=== PATIENT | male | born 1955 | race Caucasian/White ===

== ENCOUNTER 2017-06-12 07:38 | Inpatient (IN) | payer BC, SELFPAY ==
[2017-06-12 07:39] VITALS: BP 145/71; PULSE 115; RESP 16; TEMP 36.9; O2SAT 98; BMI 25.5
--- NOTE | 2017-06-12 07:48 | RAD_ITS ---
STUDY: X-RAY - ACUTE ABDOMINAL SERIES REASON FOR EXAM: Male, 61 years old. Abdominal pain with nausea and vomiting. TECHNIQUE: Single view of the chest. Supine, and erect view(s) of the abdomen were obtained. COMPARISON: Comparison is made with prior examination dated April 18, 2016. FINDINGS: Stable elevation of the right hemidiaphragm. Mild increased markings at the lung bases worse on the right side suggestive of developing atelectasis and/or scarring. Normal size heart. Normal mediastinum and [place]. Normal visualized pulmonary arteries. There is atherosclerotic tortuosity of the aortic arch and descending thoracic aorta. There is a moderate amount of colonic fecal material. There are multiple calcified phleboliths. Normal visualized osseous structures. There are degenerative osteoarthritic changes of the bilateral hips. RAD/Acute Abdomen Inc Chest IMPRESSION: Moderate amount of fecal material is seen in the colon. Electronically Signed: Nikolas Rizo MD at 9:25 EST Tel [phone], Service support ,
--- NOTE | 2017-06-12 07:58 | ED.VISSUMM ---
- ER Visit Summary Date of Service: 06/12/17 Chief Complaint: Abdominal pain with nausea and vomiting History of Present Illness: The patient is a 61 M who presents with abdominal pain with nausea vomiting started yesterday. He has not had a bowel movement in 24-48 hours. He does have history of Crohn's and normally has 1-2 bowel movements a day. He states he has not had any flatus for 12-24 hours. He reports decreased urine output. He also complains of thirst and dry mouth. He does complain of orthostatic symptoms with standing. The pain is periumbilical without radiation. There is no hematemesis, melena hematochezia. He had a resection of his bowel [address] Brothers. He denies fever, chills night sweats. He denies any ocular, visual auditory symptoms. He denies any respiratory or cardiac symptoms. He denies any skin lesions. There is no history of trauma. He denies any neurologic, endocrine or hematologic symptoms. Please read written note for complete detail Physical Examination: Vital signs are remarkable for blood pressure 145/71 heart rate 115. He appears uncomfortable. HEENT exam is remarkable dry mucosa and tongue otherwise normal. Heart is rapid and regular without murmur, gallop or rub. Lungs are clear to auscultation with good movement of air bilaterally. Abdomen is slightly distended and tympanitic with decreased bowel sounds and tenderness without guarding or rebound tenderness. There is no evidence of umbilical or inguinal hernia. There is a well-healed superior umbilical scar noted. He is alert and oriented with a nonfocal neurologic exam. Test Results: Three-view abdominal x-ray is nondiagnostic with no ossific gas pattern. White count elevated at 19.8 thousand with 86 segs no bands. BMP is remarkable glucose 133 with a BUN and creatinine at [address] of the abdomen reveals air-fluid pill small bowel consistent with an early partial small bowel obstruction. Emergency Department Course and Treatment: IV was established and he will receive 1 L of normal saline wide open. A CBC and BMP were ordered as well as abdominal series. Concern patient has a partial small bowel obstruction. Since patient's abdominal film was nondiagnostic and concern he may have a partial obstruction and a CT of the abdomen pelvis with p.o. contrast was ordered. Treatment Plan: Case was discussed with Dr. Paulina Brothers. An NG was ordered to low intermittent wall suction and she will admit patient. Disposition: Admission MedSur Impression: 1. Partial small bowel obstruction 2. History of Crohn's disease 3. History of hypertension 4. History of benign prostatic hypertrophy This note was generated with [employer] dictation software. It may contain incorrect words, spelling, and punctuation that were not noted in review of the chart prior to signing ED Disposition - Plan for ED Patient: Chief Complaint: Constipation Referrals: Regan Geller MD [Primary Care Provider] -
[2017-06-12] MEDS: Ondansetron 4 MG/2 ML Vial IV ×2 (08:07→09:24)
[2017-06-12] MEDS: 0.9% Normal Saline 1,000 ML 1000 ML IV (08:07)
[2017-06-12 08:12] LABS: Basophil# 0.02 X10^3/uL; Basophil% 0.1 % (0-1); Eosinophil# 0.07 X10^3/uL; Eosinophils% 0.4 % (0-5); Hematocrit 47.3 % (40-54); Hemoglobin 16.7 g/dl (13.0-16.5); Lymphocyte % 8.6 % (19-41); Mean Corp Hgb Conc 35.3 g/gl (32-36); Mean Corpuscular Volume 87.9 fL (80-94); Mean Platelet Vol. 9.6 fl (6.2-12.0); Monocyte# 0.97 X10^3/uL; Monocyte% 4.9 % (0-10); Neutrophil % 85.7 % (47-70); Platelet Count 289 K/mm3 (150-450); RBC Distribution Width CV 13.2 % (11.6-14.6); Red Blood Count 5.38 M/mm3 (4.6-6.2); White Blood Count 19.8 K/mm3 (4.4-11.0)
[2017-06-12 08:13] LABS: POSITIVE COUNT NO; POSITIVE DIFFERENTIAL NO; POSITIVE MORPHOLOGY NO
[2017-06-12 08:23] LABS: Anion Gap 9 (5-15); BUN 26 mg/dL (7-18); BUN/Creat Ratio 24.3 RATIO (10-20); Calcium,Total 9.6 mg/dL (8.5-10.1); Chloride 101 mmol/L (98-107); Creatinine, Serum 1.07 mg/dL (0.70-1.30); EST Glomerular Filtration Rate 74 mL/min (>60); Est Glom Filt Rate - Afr Amer 90 mL/min (>60); Estimated Creatinine Clearance 73.91 ml/min; Glucose 133 mg/dL (74-106); Potassium 3.8 mmol/L (3.5-5.1); Sodium Level 138 mmol/L (136-145)
--- NOTE | 2017-06-12 08:57 | CT_ITS ---
STUDY: CT ABDOMEN AND PELVIS WITHOUT CONTRAST REASON FOR EXAM: Male, 61 years old. Nausea and vomiting. Abdominal distention. 2 day history of constipation. History of Crohn's. RADIATION DOSAGE (If Supplied By Facility): CTDIvol = ( 9.72 ) mGy, DLP = ( 560.97 ) mGycm TECHNIQUE: Transaxial images were obtained from the dome of the diaphragm to the symphysis pubis without oral contrast, and without intravenous contrast. Sagittal and coronal images were reconstructed. Individualized dose optimization techniques were used for this CT. COMPARISON: Comparison is made with prior study done April 18, 2016. FINDINGS: Stable mild degree of increased markings at the lung bases likely worse on the right side suggestive of atelectatic or fibrotic changes. Calcified granuloma in the left lower lobe. Coronary artery calcification. Stable 3.2 cm x 2.2 cm cyst in the left lobe of the liver. The patient is status post cholecystectomy. Normal spleen. Normal pancreas. Normal bilateral adrenal glands. Normal right kidney. Normal left kidney. There is a small hiatal hernia. Surgical sutures are seen in the distal ileum. Mildly dilated fluid-filled ileal loops. No inflammatory changes are seen at this time. There is evidence of multiple small mesenteric lymph nodes in the right lower quadrant. Normal colon. There are surgical clips in the region of the appendix consistent with a prior appendectomy. Normal abdominal aorta. Normal inferior vena cava. Normal retroperitoneum. Distended urinary bladder. Stable appearance of the 5.8 cm x 4 cm left-sided bladder diverticulum. Small amount of free fluid is seen in the pelvis. Prostatic enlargement with indentation of the bladder base. Central prostatic calcification. There is a small umbilical hernia containing fat. Normal osseous structures. CT/Abdomen/Pel W ORAL Cont Only IMPRESSION: Minimally fluid distended ileal loops. There is no evidence of inflammatory changes at this time. Distended urinary bladder with a left-sided bladder diverticulum. Otherwise stable examination. Electronically Signed: Nikolas Rizo MD at 11:27 EST Tel [phone], Service support ,
[2017-06-12 09:30] VITALS: BP 138/89
--- NOTE | 2017-06-12 12:21 | NURSING ---
DR PEYTON SCHULTE
--- NOTE | 2017-06-12 12:27 | NURSING ---
DR TODD PAGED. SHE WILL ADMIT PATIENT
[2017-06-12] MEDS: Oxymetazoline 0.05% 1 SPRAY SPRAY.BTL 2 SPRAY NASAL (13:20)
[2017-06-12] MEDS: Lidocaine 4% 5 ML Ampul 2 ML INHALATION (13:21)
[2017-06-12 13:35] VITALS: BP 130/84; PULSE 87; RESP 16; TEMP 37.1; O2SAT 99
--- NOTE | 2017-06-12 13:40 | RAD_ITS ---
STUDY: X-RAY - ABDOMEN/PELVIS REASON FOR EXAM: Male, 61 years old. Nasogastric tube placement. TECHNIQUE: Single AP view of the abdomen / pelvis. COMPARISON: Comparison is made with prior examination done at 1:41 PM. FINDINGS: The tip is now at 4.8 cm distal to the gastroesophageal junction within the body of the stomach. RAD/Abdomen Single View (Portable) IMPRESSION: The tip of the nasogastric tube is in the body of the stomach at 4.8 cm distal to the gastroesophageal junction. Electronically Signed: Nikolas Rizo MD at 14:26 EST Tel [phone], Service support ,
--- NOTE | 2017-06-12 13:41 | RAD_ITS ---
STUDY: X-RAY - ABDOMEN/PELVIS REASON FOR EXAM: Male, 61 years old. Nasogastric tube placement. TECHNIQUE: Single AP view of the abdomen / pelvis. COMPARISON: Comparison is made with prior examination done earlier today. FINDINGS: A nasogastric tube is seen with the tip at the gastroesophageal junction. Elevation of the right hemidiaphragm with stable increased linear markings at the lung bases. RAD/Abdomen Single View (Portable) IMPRESSION: The tip of the nasogastric tube is at the gastroesophageal junction. Electronically Signed: Nikolas Rizo MD at 14:22 EST Tel [phone], Service support ,
--- NOTE | 2017-06-12 13:48 | PCM.HP.BLA ---
History and Physical Date of Admission: 06/12/17 Chief Complaint: abdominal pain History of Present Illness: 61 y/o WM presents with complaint of abdominal pain since yesterday. Has had multiple admission in past for partial SBO - resolved with IV hydration, NG tube decompression and bowel rest. Pain started yesterday, had bowel movement yesterday, had passed small amounts of flatus yesterday. Awoke this morning from pain at 0300 and had multiple episodes of emesis. s/p xlap/DAYANA/SB resection 10/27/11 for Crohn's terminal ileum, had postoperative intraabdominal abscess drained percutaneously. last admission for partial SBO Apr 2016 Denies blood in stools. Following Dr. Mcmahan for Crohn's disease on humira. Past Medical History: Crohn's disease on Humira hypertension hyperlipidemia GERD BPH Past Surgical History: Appendectomy Lipoma removal Small bowel resection/DAYANA 10/27/11 for Crohn's terminal ileum Cholecystectomy Medications: humira every other week aspirin cholecalciferol doxazosin lansoprazole niacin omeprazole Allergies: Has no known drug allergies Social history: , lives with spouse TOB - none Review of Systems: General - denies fevers Cardiovascular denies chest pain, denies history of heart attack Pulmonary denies shortness of breath, denies coughing up blood Gastrointestinal as per HPI, denies blood in stools Neurological denies numbness/weakness of extremities, denies seizures Genitourinary denies burning with urination, denies blood in urine Hematological denies spontaneous\prolonged bleeding Skin denies open non healing wounds Musculoskeletal denies chronic joint pain Endocrine denies diabetes Psychological denies suicidal ideation, denies hallucinations Physical examination: Vital signs Temp 98.5F HR 115 BP 145/71 RR 95 General WD/WN WM in no apparent distress, alert and oriented, not septic appearing HEENT Normocephalic. EOM intact with sclera clear and no icterus noted. Wearing glasses. Neck is supple with no jugular venous distention noted. Trachea is midline. Lungs clear to auscultation. normal breath sounds. No rales/rhonchi/wheezing noted. No labored breathing noted, such as retractions. . Heart normal S1 and S2 auscultated. No rubs/clicks/murmurs noted. . Abdomen soft but with generalized tenderness. no bowel sounds noted, no peritoneal signs noted, distended Extremities no calf tenderness noted. No pitting edema noted. Genitourinary/Rectal deferred Skin normal skin integrity. Neurological non focal Psychological normal affect, patient is calm and appropriate Impression: partial SBO Crohn's disease Discussion/Plan: I have discussed the above with the patient. Will proceed with conservative therapy with IV hydration, NG tube decompression and bowel rest. Given elevated WBC - will empirically begin with IV antibiotics - levaquin and flagyl. I do not believe that there are surgical indications at present. Will consult internal medicine for management of medical issues - hypertension, etc. I have answered all questions to the patients satisfaction and the patient has no further questions.
--- NOTE | 2017-06-12 13:51 | HP.PCM_ITS ---
History and Physical Date of Admission: 06/12/17 Chief Complaint: abdominal pain History of Present Illness: 61 y/o WM presents with complaint of abdominal pain since yesterday. Has had multiple admission in past for partial SBO - resolved with IV hydration , NG tube decompression and bowel rest. Pain started yesterday, had bowel movement yesterday, had passed small amounts of flatus yesterday. Awoke this morning from pain at 0300 and had multiple episodes of emesis. s/p xlap/DAYANA/SB resection 10/27/11 for Crohn's terminal ileum, had postoperative intraabdominal abscess drained percutaneously. last admission for partial SBO Apr 2016 Denies blood in stools. Following Dr. Mcmahan for Crohn's disease on humira. Past Medical History: Crohn's disease on Humira hypertension hyperlipidemia GERD BPH Past Surgical History: Appendectomy Lipoma removal Small bowel resection/DAYANA 10/27/11 for Crohn's terminal ileum Cholecystectomy Medications: humira every other week aspirin cholecalciferol doxazosin lansoprazole niacin omeprazole Allergies: Has no known drug allergies Social history: , lives with spouse TOB - none Review of Systems: General - denies fevers Cardiovascular denies chest pain, denies history of heart attack Pulmonary denies shortness of breath, denies coughing up blood Gastrointestinal as per HPI, denies blood in stools Neurological denies numbness/weakness of extremities, denies seizures Genitourinary denies burning with urination, denies blood in urine Hematological denies spontaneous\prolonged bleeding Skin denies open non healing wounds Musculoskeletal denies chronic joint pain Endocrine denies diabetes Psychological denies suicidal ideation, denies hallucinations Physical examination: Vital signs Temp 98.5F HR 115 BP 145/71 RR 95 General WD/WN WM in no apparent distress, alert and oriented, not septic appearing HEENT Normocephalic. EOM intact with sclera clear and no icterus noted. Wearing glasses. Neck is supple with no jugular venous distention noted. Trachea is midline. Lungs clear to auscultation. normal breath sounds. No rales/rhonchi/ wheezing noted. No labored breathing noted, such as retractions. . Heart normal S1 and S2 auscultated. No rubs/clicks/murmurs noted. . Abdomen soft but with generalized tenderness. no bowel sounds noted, no peritoneal signs noted, distended Extremities no calf tenderness noted. No pitting edema noted. Genitourinary/Rectal deferred Skin normal skin integrity. Neurological non focal Psychological normal affect, patient is calm and appropriate Impression: partial SBO Crohn's disease Discussion/Plan: I have discussed the above with the patient. Will proceed with conservative therapy with IV hydration, NG tube decompression and bowel rest. Given elevated WBC - will empirically begin with IV antibiotics - levaquin and flagyl. I do not believe that there are surgical indications at present. Will consult internal medicine for management of medical issues - hypertension, etc. I have answered all questions to the patient?s satisfaction and the patient has no further questions.
[2017-06-12 14:12] VITALS: BP 144/99; PULSE 76; RESP 18; TEMP 37.2; O2SAT 99
[2017-06-12 14:13] VITALS: BMI 25.9
[2017-06-12 14:14] VITALS: BMI 25.9
[2017-06-12] MEDS: Lactated Ringers 1,000 ML 150 ML IV ×2 (14:51→22:22)
[2017-06-12] MEDS: 0.9% NaCl Peripheral Flush Adult/Peds IV ×2 (16:13→17:10)
[2017-06-12 17:06] VITALS: BP 129/78; PULSE 71; RESP 18; TEMP 37.5; O2SAT 94
[2017-06-12] MEDS: Enalaprilat 1.25 MG/ML Vial IV (17:10)
--- NOTE | 2017-06-12 17:45 | PCM.PROGNOTE ---
Subjective: Patient is a 61-year-old male admitted for abdominal pain with history of recurrent partial small bowel obstruction. He has a past medical history of Crohn's disease, hypertension, hyperlipidemia, GERD, BPH. Hospitalist service consulted for management of hypertension. Blood pressure is currently stable. He states he was placed on doxazosin by PCP for BPH which he was also told would help with high blood pressure. Patient was seen and examined. Denies abdominal pain currently although he states he recently received IV morphine. NG in place with dark brown drainage. Patient had a normal bowel movement yesterday. He denies fever, chills. Denies nausea. Denies other complaints. - Physical Exam General: Alert, Oriented x3, Cooperative, No apparent distress HEENT: Atraumatic, PERRLA, EOMI, Normocephalic Neck: Supple, No JVD, Negative Carotid Bruits Lungs: Clear to auscultation, Normal air movement Cardiovascular: Regular rate, Regular Rhythm, Normal S1, Normal S2, No murmurs Abdomen: Bowel Sounds Present, Soft, Non Tender, Non-Distended, - - NG tube in place Extremities: No clubbing, No cyanosis, No edema, Capillary Refill Less than 3 Seconds Skin: No rashes, No breakdown Musculoskeletal: No Tenderness to Palpation of Joints or Extremities Neurological: Cranial nerves II-XII grossly intact, Neuro grossly intact Psych/Mental Status: Normal Affect, Appropriate Vital Signs Temp Pulse Resp BP Pulse Ox 99.5 F H 71 18 129/78 H 94 06/12/17 17:06 06/12/17 17:06 06/12/17 17:06 06/12/17 17:06 06/12/17 17:06 Oxygen Delivery Method Room Air Weight: 81.873 kg Body Mass Index (BMI) 25.9 Assessment/Plan 1. Recurrent partial small bowel obstruction- management per surgery, Dr. Brothers. Recent admission for partial small bowel obstruction April 2016. Patient has history of small bowel resection/DAYANA secondary to Crohn's. Continue IV hydration. NG tube in place. N.p.o. Zofran for nausea. IV Levaquin and Flagyl were initiated given leukocytosis. Morphine as needed for pain. 2. Hypertension-stable. IV Vasotec 1.25 mg every 6 as needed for systolic greater than 160. 3. Crohn's disease-on Humira regimen. Follows with Dr. Mcmahan. 4. Hyperlipidemia-on niacin supplementation. 5. GERD-continue Prevacid regimen when able to tolerate oral intake. 6. BPH-continue Flomax regimen when able to tolerate oral intake. DVT prophylaxis-SCDs. This patient was seen by ROOSEVELT Luque under the supervision of Dr. Graves.
[2017-06-12 19:55] VITALS: BP 129/80; PULSE 67; RESP 18; TEMP 37; O2SAT 97
[2017-06-12] MEDS: Doxazosin 4 MG Tablet 8 MG NG (22:23)
[2017-06-13 01:55] VITALS: BP 137/81; PULSE 62; RESP 16; TEMP 36.8; O2SAT 95
[2017-06-13] MEDS: Lactated Ringers 1,000 ML 150 ML IV (04:53)
--- NOTE | 2017-06-13 05:55 | RAD_ITS ---
STUDY: X-RAY - ABDOMEN/PELVIS REASON FOR EXAM: Male, 61 years old. Abdominal distention. TECHNIQUE: AP supine and upright views of the abdomen and pelvis. COMPARISON: Comparison is made with prior study dated June 12, 2017. FINDINGS: Stable elevation of the right hemidiaphragm with mild increased linear markings at the lung bases suggestive of atelectasis. The tip of the nasogastric tube is in the body of the stomach. Oral contrast from prior CT scan is seen throughout the colon. There is no evidence of a bowel obstruction at this time. There is no demonstrated free abdominal air. The visualized liver, spleen and kidneys are grossly normal in size and morphology. Normal soft tissue structures. Normal visualized osseous structures. RAD/Abd Inc Decub and/or Erect IMPRESSION: Contrast is seen within the colon. There is no evidence of bowel obstruction. Electronically Signed: Nikolas Rizo MD at 10:17 EST Tel [phone], Service support ,
[2017-06-13] MEDS: 0.9% NaCl Peripheral Flush Adult/Peds IV ×2 (06:26→08:49)
--- NOTE | 2017-06-13 06:38 | NURSING ---
Pt off floor with CRUSHER SUPERVISOR for testing.
[2017-06-13 08:00] VITALS: RESP 18
[2017-06-13] MEDS: Ondansetron 4 MG/2 ML Vial IV (08:49)
[2017-06-13 08:59] VITALS: BP 132/78; PULSE 67; RESP 18; TEMP 36.6; O2SAT 98
--- NOTE | 2017-06-13 09:31 | PCM.PN.HOSP ---
Subjective: CC: PSBO Patient reports improved symptoms with no abdominal pain, nausea or vomiting , he is passing gas and NG tube was removed. Vitals/I&O's: Vital Signs Temp Pulse Resp BP Pulse Ox 97.8 F 67 18 132/78 H 98 06/13/17 08:59 06/13/17 08:59 06/13/17 08:59 06/13/17 08:59 06/13/17 08:59 Oxygen Delivery Method Room Air Weight: 81.873 kg Body Mass Index (BMI) 25.9 Intake and Output for Last 24 Hours 06/11/17 06/12/17 06/13/17 23:59 23:59 23:59 Intake Total 510 / 510 2225 / 2225 Output Total 300 / 300 1075 / 1075 Balance 210 / 210 1150 / 1150 General: Alert, Oriented x3 HEENT: Atraumatic Oral: Moist Mucosa Neck: Supple Lungs: Clear to auscultation, No wheeze, No rales, Rales Cardiovascular: Regular rate, Normal S1, Normal S2 Abdomen: Bowel Sounds Present, Soft Extremities: No clubbing Neurological: Cranial nerves II-XII grossly intact, Motor Exam 5/5 strength throughout Psych/Mental Status: Normal Affect Current Medications Doxazosin Mesylate (Cardura) 8 mg NG QHS [facility] Last Admin: 06/12/17 22:23 Dose: 8 mg Lactated Ringer's () 1,000 mls @ 150 mls/hr IV .[id number] [facility] Last Admin: 06/13/17 04:53 Dose: 150 mls/hr Levofloxacin (Levaquin) 500 mg in 100 mls @ 100 mls/hr IV Q24 [facility] Last Admin: 06/12/17 17:08 Dose: 100 mls/hr Metronidazole (Flagyl) 500 mg in 100 mls @ 100 mls/hr IV Q8 [facility] Last Admin: 06/13/17 05:58 Dose: 100 mls/hr Morphine Sulfate (Morphine) 4 mg IV Q1H PRN PRN PRN Reason: SEVERE PAIN (6-10/10) Last Admin: 06/13/17 05:58 Dose: 4 mg Ondansetron HCl (Zofran) 4 mg IV Q6H PRN PRN Reason: NAUSEA Last Admin: 06/13/17 08:49 Dose: 4 mg Sodium Chloride () 5 - 30 ml IV UD PRN PRN Reason: SALINE FLUSH Last Admin: 06/13/17 08:49 Dose: 10 ml Assessment/Plan 1. Recurrent partial small bowel obstruction; management per primary service. 2. Hypertension-stable, n.p.o. is discontinued we will be placed on oral antihypertensive agents. 3. Crohn's disease-on Humira regimen. He will Follows u[ with Dr. Mcmahan as an opt. 4. Hyperlipidemia-on niacin supplementation. 5. GERD; on Prevacid . 6. BPH; he is on Flomax . Code Visit Inpatient E&M: 31424 Subs Hosp L2
--- NOTE | 2017-06-13 11:54 | PCM.PN.SRG ---
Subjective: patient passed flatus a short while ago KUB reveals that contrast in colon Patient states that abdomen is sore - Physical Exam General: Alert, Oriented x3 Oral: Moist Mucosa Neck: Supple Lungs: Normal air movement Abdomen: Bowel Sounds Present, Soft Vital Signs Temp Pulse Resp BP Pulse Ox 97.8 F 67 18 132/78 H 98 06/13/17 08:59 06/13/17 08:59 06/13/17 08:59 06/13/17 08:59 06/13/17 08:59 Oxygen Delivery Method Room Air Weight: 81.873 kg Body Mass Index (BMI) 25.9 Intake and Output for Last 24 Hours 06/11/17 06/12/17 06/13/17 23:59 23:59 23:59 Intake Total 510 / 510 2225 / 2225 Output Total 300 / 300 1075 / 1075 Balance 210 / 210 1150 / 1150 Assessment/Plan Impression: Partial SBO - resolved Crohn's disease PLAN: will order full liquid diet, if tolerates, may discharge to home on this today
--- NOTE | 2017-06-13 11:56 | PCM.DC.GS ---
Discharge Diet: - - liquid type diet for 1-2 days until patient feels normal, avoid carbonated beverages for a few days Discharge Activity: Return to Normal Activity Allergies/Adverse Reactions: Allergies No Known Allergies Allergy (Verified 06/12/17 07:40) Medications to take at Discharge Cholecalciferol (VIT D3) [Vitamin D3] 5,000 unit PO DAILY 04/18/16 Lansoprazole [Prevacid] 15 mg PO DAILY 04/18/16 Niacin SA [Niaspan] 1,000 mg PO DAILY 04/18/16 Adalimumab [Humira] 20 mg SQ Q14D 06/12/17 Aspirin [Aspirin, Baby] 81 mg PO DAILY@0800 06/12/17 Tamsulosin HCl [Flomax] 0.4 mg PO DAILY 06/12/17 Primary Care Physician: Regan Geller MD [Primary Care Provider] - Please Follow Up With: Jim Mcmahan MD When: as per needed
--- NOTE | 2017-06-13 12:05 | CASEMGMT ---
See RN CM Assessment Link. Possible dc today. No dc needs identified by pt or his . Devi KIRKN RN ACM
[2017-06-13 14:00] VITALS: RESP 18
[2017-06-13 14:36] VITALS: BP 129/81; PULSE 75; RESP 18; TEMP 36.9; O2SAT 98
[2017-06-13 16:34] VITALS: BP 129/81; PULSE 75; RESP 18; TEMP 36.9; O2SAT 98
--- NOTE | 2017-06-24 11:27 | PCM.DC.BLA ---
Discharge Summary Date of Admission: 06/12/17 Date of Discharge: 06/13/17 Summary: Garfield Gutierrez is a 61 y/o WM admitted for partial small bowel obstruction. He was treated conservatively with IV hydration, NG tube decompression, bowel rest and pain control. Patient's partial SBO resolved overnight. Passing flatus and had bowel movement the next day. Tolerating liquids by time of discharge. Discharged to home with follow up with his cost estimating clerk.
== END 2017-06-13 16:35 | disposition home or self-care (01) | DRG 386 ==
LOC: ED 07:58 → MS2 13:09
PROVIDERS: Admitting Provider Surgery; Emergency Provider Emergency Medicine; Family Provider Family Medicine; PCP Family Medicine; Visit Provider Internal Medicine
DX: K50.912 Crohn's disease, unspecified, with intestinal obstruction (principal); E78.5 Hyperlipidemia, unspecified; I10 Essential (primary) hypertension; K21.9 Gastro-esophageal reflux disease without esophagitis; Z90.49 Acquired absence of other specified parts of digestive tract; N40.0 Benign prostatic hyperplasia without lower urinary tract symptoms; Z79.899 Other long term (current) drug therapy
CPT/HCPCS: 74018; 74019; 74022; 74176; 80048; 85025; 97802; 99285; J7030; J7120; A4216; J2405

== ENCOUNTER → 2017-09-24 08:31 | Outpatient (CLI) | payer BC, SELFPAY ==
--- NOTE | 2017-09-24 08:34 | RAD_ITS ---
STUDY: X-RAY - RIGHT SHOULDER REASON FOR EXAM: Male, 62 years old. Pain. Prior surgery 1997. TECHNIQUE: 4 view(s) of the shoulder. COMPARISON: Left shoulder 02/15/2017. FINDINGS: Extra devices are present in the humeral head consistent with prior rotator cuff repair. There is superior subluxation of the humeral head relative to the glenoid narrowing the subacromial-humeral rotator cuff interval suggesting rotator cuff insufficiency. No significant DJD of the glenohumeral articulation. No significant DJD of the achromic clavicular joint. Osseous structures about the shoulder are intact. Right hemithoracic structures unremarkable. RAD/Shoulder min 2 Views IMPRESSION: Postsurgical features of the shoulder, with superior subluxation of the humeral head relative to the glenoid suggesting rotator cuff insufficiency. Electronically Signed: Mohan Bueno, at 9:48 EDT Tel , Service support ,
== END ==
PROVIDERS: Family Provider Family Medicine; PCP Family Medicine; Visit Provider Family Medicine
DX: M25.511 Pain in right shoulder (principal)
CPT/HCPCS: 73030

== ENCOUNTER → 2017-10-01 17:05 | Outpatient (CLI) | payer BC, SELFPAY ==
--- NOTE | 2017-10-01 17:09 | RAD_ITS ---
STUDY: X-RAY - RIGHT KNEE REASON FOR EXAM: Male, 62 years old. Medial knee pain for one month. TECHNIQUE: 4 view(s) of the knee. COMPARISON: None. FINDINGS: Normal visualized distal femur. Normal visualized proximal tibia and fibula. Normal proximal tibiofibular articulation. There is no acute fracture, dislocation or destructive osseous pathology. Normal medial femorotibial compartment. Normal lateral femorotibial compartment. Normal patellofemoral articulation. There is no demonstrated joint effusion. The soft tissue structures are unremarkable. RAD/Knee 4 or More Views IMPRESSION: Normal x-ray examination of the knee. Medial right knee pain for a month. Electronically Signed: Denver Frederick DO at 12:03 EDT Tel [phone], Service support ,
== END ==
PROVIDERS: Family Provider Family Medicine; PCP Family Medicine; Visit Provider Family Medicine
DX: M25.561 Pain in right knee (principal)
CPT/HCPCS: 73564

== ENCOUNTER → 2017-10-02 16:44 | Outpatient (CLI) | payer BC, SELFPAY ==
--- NOTE | 2017-10-02 16:45 | MRI_ITS ---
STUDY: MRI RIGHT SHOULDER REASON FOR EXAM: Male, 62 years old. Pain TECHNIQUE: Standardized fat and water weighted pulse sequences were obtained in all 3 orthogonal planes. COMPARISON: X-ray September 24, 2017. FINDINGS: Rotator cuff tear of the supraspinatus and infraspinatus tendons with retraction of 3.0 cm, series 6 and 9 images 11/26 through . Normal subscapularis tendon. Normal teres minor tendon. There is severe muscular atrophy of the supraspinatus muscle. There is moderate muscular atrophy of the infraspinatus muscle. Normal subscapularis muscle. Normal teres minor muscle. There is a small volume joint effusion of the glenohumeral joint. There is decreased subacromial space. There is postoperative changes of the humeral head with susceptibility artifact associated with hardware in the lateral aspect.. Nonvisualized biceps labral complex with tear versus tenodesis. Normal intracapsular long biceps tendon. Normal labrum. Normal capsulo- ligamentous complex. Normal rotator interval. There is mild osteoarthritis of the acromioclavicular articulation. There is a Type II morphology (curved) acromion, with a posterior downsloping orientation. There is mild fluid distention of the subacromial bursa, consistent with mild subacromial-subdeltoid bursitis. Normal visualized coracohumeral and coracoacromial ligaments. Normal quadrilateral space. Normal axillary space. Normal deltoid muscle. Normal trapezius muscle. MRI/Upper Ext Joint Only(Routine) IMPRESSION: Chronic full-thickness rotator cuff tear of the supraspinatus and infraspinatus tendons with retraction and muscular atrophy. Electronically Signed: Raúl Rolon MD at 18:56 EDT , Service support ,
== END ==
PROVIDERS: Family Provider Family Medicine; PCP Family Medicine; Visit Provider Family Medicine
DX: M25.511 Pain in right shoulder (principal)
CPT/HCPCS: 73221

== ENCOUNTER 2017-11-26 18:30 | Outpatient (RCR) | payer BC, SELFPAY ==
--- NOTE | 2017-10-29 19:16 | HP.PTEVAL_ITS ---
Patient's Visit Information AZEEM JOHNSTON is a 62 year old M referred to Physical Therapy by Ilya Poole with a diagnosis of STRAIN OF MUSCLE TENDON THE ROTATOR CUFF OF RIGHT SHOULDER. Date of Evaluation: 10/29/17 Physical Therapist: Pastor Greene PT, - Visit Plan Frequency: 2x /Week Duration: 4 Weeks Plan: graded gradulal light RTC strengthening,scapular strengthening,postural ex 's,isomtrics - Subjective Subjective: This 62 y/o male presents to physical therapy strain of muscle rotator cuff right shoulder. Patient has h/o right shoulder RTC repair 1997 open. Most recently 3 months ago sideways felt pain in shoulder ,then pain presisted overall several weeks. Seen Orthopedic ,MRI reveal 3.cm full thickness RTC tear of infraspinatus/supraspinatius.Dr said unable to repair RTC. Recommend PT.Patient has min pain ,able to lift arm overhead in flexion but not to side. Patient states difficulty with overhead activities above 90 degrees.Patient denies parathesia/tingling. Patient major weakness for ADL'S. Patient impairments affects QOL and ADL'S,job demands and housework tasks. VOCATION: [employer]. SOCIAL: - Pain Right Shoulder Pain Intensity (Out of 10): 1 Pain Intensity Range: 10 - Objective POSTURE: mild foward posture. NEURO: inact. PALAPTION: unremarkable. AROPHIED : supraspinatous. AROM: shoulder flexion 135 degrees supraspinatous ,abduction 80 degrees with substitution. PROM: ER 85 DEGREES. FUNCTION TEST: IR T3, behinf cervical occiput. MMT: anterior deltoid 3/5,lateral deltoid 2/3, infraspinatous 3+/5,subscapularis 4-/5 ,supraspinatous - Special Tests R Shoulder External Rotation Lag Test - RC Tear: Positive R Shoulder Supine Impingement Test - RC Tear: Positive R Shoulder Lift Off Test - Subscapular Tear: Positive R Shoulder Drop Sign - IS Test: Negative R Shoulder Empty Can - SS: Positive R Shoulder Belly Press - SupScap: Negative R Shoulder Neer - Impingement: Negative R Shoulder Sherman Tobias - Impingement: Negative - Goals Goal 1:: Indepeendant with HEP Goal Time Frame: 4-6 Weeks Goal 2:: Improve AROM shoulder function for ADL'S and job demnads Goal Time Frame: 4-6 Weeks Goal 3:: Patient increase function strength of right shoulder for [place] activities for ADL'S Goal Time Frame: 4-6 Weeks Goal 4:: Patieny to improve shoulder disablity dash score by 5-10 points to improve QOL and functrion Goal Time Frame: 4-6 Weeks - Rehabilitation Potential Physical Therapy Diagnosis: This patient has full thickness tear RTC with decreae ROM/strength which impairs function with overhead activies ADLS' and job demnads thus will benifit froms skilled PT Rehabilitation Potential: Fair - Anticipated Interventions Patient/Client Instruction: Educate patient on: Condition, Plan of Care For the Purpose of:: To decrease pain, To increase ROM, To improve muscle performance and motor function, To improve ability to perform ADL's, To increase tolerance to activity/condition/position, To improve performance and independence with ADL's, To improve ability of physical actions for home/ community/work/leisure, To improve health of tissue, To decrease soft tissue restriction, To increase flexibility/ROM, To assume or resume ADL's, To improve ability to perform tasks related to life management Therapeutic Exercise to Include: Strength training, Postural training, Active ROM, Scapular Strength/Stabilization Comment: RTC For the Purpose of:: To decrease pain, To increase ROM, To improve muscle performance and motor function, To increase tolerance to activity/condition/ position, To improve ability of physical actions for home/community/work/leisure , To improve health of tissue, To decrease soft tissue restriction, To increase flexibility/ROM, To improve ability to perform tasks related to life management TENS: Yes IF ES: Yes Cryotherapy (ice pack, ice massage): Yes Thermo therapy (hot pack): Yes Ultrasound (thermal/non thermal): Yes For the Purpose of:: To decrease pain, To increase ROM, To improve nutrient delivery to tissue, To increase oxygenation perfusion, To improve health of tissue, To decrease soft tissue restriction Thank you for the opportunity to evaluate your patient. For Medicare and Medicare HMO plans, please review the plan of care and approve it. It will need to be FAXED BACK to us at [phone] for Medicare purposes. Please let me know if there are questions or concerns regarding this plan of care. Physician Signature: Date:
--- NOTE | 2018-02-20 15:19 | HP.PTDCSUM ---
HP - PT D/C Summary It has been my pleasure to treat AZEEM JOHNSTON under orders from Ilya Poole, for the diagnosis of STRAIN OF MUSCLE TENDON THE ROTATOR CUFF OF RIGHT SHOULDER for a total of 6 visit(s). Discharge Date: Please see the following information for a summary of their discharge status. - Subjective Subjective: Doing okay ,plan to see orthopedic DR - Pain Right Shoulder Pain Intensity (Out of 10): 1 - Overall Improvement % Improvement: 50 - Objective Objective/Function: javier tx well ..did well with tx plan. AROM: shoulder flexion 120 degrees ,abd 95 degrees. shoulder strength 3/5 - Goals Goal 1:: Indepeendant with HEP Goal Progress: Progressing Goal 2:: Improve AROM shoulder function for ADL'S and job demnads Goal Progress: Progressing Goal 3:: Patient increase function strength of right shoulder for [place] activities for ADL'S Goal Progress: Progressing Goal 4:: Patieny to improve shoulder disablity dash score by 5-10 points to improve QOL and functrion Goal Progress: Progressing - Plan Plan: see Othopedic MD - D/C Information If there are questions or concerns regarding this patient's physical therapy, please feel free to call me at [phone]. Thank you for the referral of this patient. Sincerely, Pastor Greene, PT,
== END 2017-11-26 19:00 | disposition home or self-care (01) ==
LOC: PT 18:30
PROVIDERS: Family Provider Family Medicine; PCP Family Medicine; Visit Provider Physician Assistant
DX: S46.011D Strain of muscle(s) and tendon(s) of the rotator cuff of right shoulder, subsequent encounter (principal)
CPT/HCPCS: 97110; 97162

== ENCOUNTER → 2020-04-26 | Outpatient (CLI) | payer MEDICARE, SELFPAY ==
[2020-04-26 16:13] LABS: ALB/GLOB Ratio 1.3 RATIO (0.9-2.4); AST(SGOT) 18 U/L (15-37); Alanine Aminotransfer ALT/SGPT 26 U/L (16-61); Albumin, Serum 3.9 g/dL (3.2-5.0); Alkaline Phosphatase 71 U/L (45-117); Anion Gap 9 (5-15); BUN 20 mg/dL (7-18); Calcium,Total 8.7 mg/dL (8.5-10.1); Chloride 105 mmol/L (98-107); Cholesterol 180 mg/dL (200); Creatinine, Serum 0.83 mg/dL (0.70-1.30); EST Glomerular Filtration Rate 98 mL/min (>60); Est Glom Filt Rate - Afr Amer 119 mL/min (>60); Globulin 3.1 g/dL (2.2-4.2); Glucose 84 mg/dL (74-106); High Density Lipoprotein 50 mg/dL; Potassium 3.8 mmol/L (3.5-5.1); Sodium Level 137 mmol/L (136-145); Triglycerides 88 mg/dL; Very Low Density Lipoprotein 18 mg/dL (5-40)
[2020-04-26 16:33] LABS: Microalbumin,Random Urine 28.4 mg/L (NO RANGE EST.); Microalbumin:Creatinine Ratio 13.7 mg/g CRE (<30 mg/g CRE)
== END | disposition home or self-care (01) ==
LOC: MFPLAB 04-27 10:19
PROVIDERS: PCP Family Medicine; Visit Provider Family Medicine
DX: I10 Essential (primary) hypertension (principal)
CPT/HCPCS: 36415; 80053; 80061; 82043; 82570

== ENCOUNTER → 2020-11-25 09:21 | Outpatient (CLI) | payer MEDICARE, OTHER, SELFPAY ==
--- NOTE | 2020-11-25 09:25 | US_ITS ---
PROCEDURES: ULTRASOUND AORTA REASON FOR EXAM: Male, 65 years old. AAA TECHNIQUE: Ultrasound evaluation of the aorta was performed with real-time and static santana-scale imaging. COMPARISON: None. FINDINGS: There is atherosclerotic plaque formation of the abdominal aorta. Aorta measures: Proximal 2.6 cm. Middle 2 cm. Distal 1.7 cm. Aorta measure transversely: Proximal 2.9 cm. Middle 1. cm. Distal 1.9 cm. Right iliac artery measures: 1.2 cm. Right iliac artery measure transversely: 1.1 cm. Left iliac artery measures: 1.2 cm. Left iliac artery measure transversely: 1.4 cm. There is no demonstrated aneurysm.. US/Aorta IMPRESSION: Atherosclerotic plaque formation. No evidence of aneurysm. Electronically Signed: Nikolas Rizo MD at 11:05 EDT , Service support ,
== END ==
PROVIDERS: PCP Family Medicine; Referring Provider Family Medicine; Visit Provider Family Medicine
DX: Z13.6 Encounter for screening for cardiovascular disorders (principal)
CPT/HCPCS: 76775

== ENCOUNTER → 2021-11-10 | Outpatient (CLI) | payer MEDICARE, OTHER, SELFPAY ==
[2021-11-10 12:23] LABS: Absolute Lymphocyte Count 2.26 X10^3/uL (0.83-4.51); Absolute Neutrophil Count 5.6 X10^3/uL (2.0-7.7); Basophil# 0.04 X10^3/uL; Basophil% 0.4 % (0-1); Eosinophil# 0.11 X10^3/uL; Eosinophils% 1.2 % (0-5); Erythrocyte Sedimentation Rate 16 mm/hr (0-20); Hemoglobin 13.2 g/dL (13.0-16.5); Lymphocyte # 2.26 X10^3/ul (0.83-4.51); Lymphocyte % 25.3 % (19-41); Mean Corp Hgb Conc 32.2 g/dL (32-36); Mean Corpuscular Hgb 28.3 pg (27.0-32.0); Mean Corpuscular Volume 87.8 fL (80-94); Mean Platelet Vol. 9.9 fl (6.2-12.0); Monocyte# 0.91 X10^3/uL; Monocyte% 10.2 % (0-10); NRBC Flagged by Analyzer 0 % (0-5); Neutrophil # 5.57 X10^3/uL (2.7-7.7); Neutrophil % 62.6 % (47-70); Platelet Count 318 K/mm3 (150-450); RBC Distribution Width CV 13.7 % (11.6-14.6); RBC Distribution Width SD 44.1 fl (35.1-43.9); Red Blood Count 4.67 M/mm3 (4.6-6.2); White Blood Count 8.9 K/mm3 (4.4-11.0)
[2021-11-10 12:38] LABS: ALB/GLOB Ratio 1.1 RATIO (0.9-2.4); AST(SGOT) 18 U/L (15-37); Alanine Aminotransfer ALT/SGPT 23 U/L (16-61); Albumin, Serum 3.8 g/dL (3.2-5.0); Alkaline Phosphatase 72 U/L (45-117); Anion Gap 8 (5-15); BUN 22 mg/dL (7-18); BUN/Creat Ratio 25.4 RATIO (10-20); Calcium,Total 8.8 mg/dL (8.5-10.1); Chloride 101 mmol/L (98-107); Cholesterol 184 mg/dL (200); Creatinine, Serum 0.86 mg/dL (0.70-1.30); EST Glomerular Filtration Rate 94 mL/min (>60); Est Glom Filt Rate - Afr Amer 113 mL/min (>60); Globulin 3.4 g/dL (2.2-4.2); Glucose 97 mg/dL (74-106); High Density Lipoprotein 42 mg/dL; PSA,Total - Annual Screen 2.26 ng/mL (0.00-4.00); Potassium 4.3 mmol/L (3.5-5.1); Protein, Total 7.2 g/dL (6.4-8.2); Sodium Level 136 mmol/L (136-145); Triglycerides 117 mg/dL; Very Low Density Lipoprotein 23 mg/dL (5-40)
== END | disposition home or self-care (01) ==
LOC: MFPLAB 10:40
PROVIDERS: PCP Family Medicine; Referring Provider Family Medicine; Visit Provider Family Medicine
DX: K50.90 Crohn's disease, unspecified, without complications (principal); Z13.220 Encounter for screening for lipoid disorders; Z12.5 Encounter for screening for malignant neoplasm of prostate
CPT/HCPCS: 36415; 80053; 80061; 84153; 85025; 85652; G0103